=== PATIENT | female | born 1970 | race Caucasian/White ===

== ENCOUNTER → 2017-07-31 | Outpatient (CLI) | payer OTHER | LOC: M.RAD 07:40 | DX: Z12.31 Encounter for screening mammogram for malignant neoplasm of breast (principal) ==

== ENCOUNTER → 2017-08-18 | Outpatient (CLI) | payer OTHER | LOC: M.ULTRA 08-11 15:00 | DX: N63.20 Unspecified lump in the left breast, unspecified quadrant (principal) ==